=== PATIENT | male | born 1930 | race African-American/Black ===

== ENCOUNTER 2018-06-04 13:31 | Emergency (ER) | payer MEDICARE ==
[~2018-06-04] VITALS: Ht 180.3 cm; Wt 111.0 kg
[~2018-06-04 13:31] MED LIST: ALBU6.7H; IRBE300T18; METO100T16; POTA8TAB8; SIMV80TA70
[2018-06-04] MEDS ORDERED: FURO40TA5 PO (13:44)
[2018-06-04] MEDS ORDERED: SACU1TAB4 PO (13:44)
[2018-06-04] MEDS ORDERED: LOPHC2 PO (13:44)
[2018-06-04 14:51] LABS: EOSINOPHILS % 2.1 % (0.0-5.0); HEMATOCRIT. 47.9 % (42.0-52.0); HEMOGLOBIN. 15.5 g/dL (14.0-18.0); MEAN CORPUSCULAR VOLUME 86.8 fL (80.0-94.0); MEAN PLATELET VOLUME 8.6 fl (7.4-10.4); MONOCYTES % 10.7 % (2.0-8.0); NEUTROPHILS % 52.2 % (40.0-76.0); PLATELET 160 x1000/uL (130-400); RED BLOOD CELL COUNT 5.52 mill/uL (4.7-6.1); RED CELL DISTRIBUTION WIDTH 15.4 % (11.6-14.6)
[2018-06-04 14:57] LABS: CHLORIDE 104 mEq/L (98-107)
[2018-06-04] MEDS ORDERED: ASPIRIN 81MG TABLET PO ONE (15:00)
[2018-06-04 15:03] LABS: INR 1.1; PARTIAL THROMBOPLASTIN TIME 28.9 sec (23.4-31.0); PROTHROMBIN TIME 10.8 sec (9.1-11.1)
[2018-06-04 15:06] LABS: T4 FREE 0.87 ng/dL (0.76-1.46)
[2018-06-04 17:00] VITALS: BP 128/86
== END 2018-06-04 18:07 | disposition home or self-care (01) ==
LOC: EDBEDREQ 13:53 → ER 14:32 → CANRESERV 15:38 → ENRESERV 15:38 → ER 18:07 → CANBEDREQ 19:07
DX: R00.2 Palpitations (principal); R94.31 Abnormal electrocardiogram [ECG] [EKG]; R79.9 Abnormal finding of blood chemistry, unspecified; I10 Essential (primary) hypertension; Z79.899 Other long term (current) drug therapy; Z95.0 Presence of cardiac pacemaker
CPT/HCPCS: 36415; 71045; 80053; 83735; 83880; 84439; 84443; 84484; 85025; 85610; 85730; 93005; 99285